=== PATIENT | female | born 1990 | race Caucasian/White ===

== ENCOUNTER 2016-08-09 11:55 | Emergency (ER) | payer MEDICAID ==
[~2016-08-09] VITALS: Ht 160 cm; Wt 62.0 kg
[2016-08-09 11:59] VITALS: BP 96/73
[2016-08-09] MEDS ORDERED: DOCUSATE SODIUM 100MG CAPSULE PO ONE (14:30)
== END 2016-08-09 15:00 | disposition home or self-care (01) ==
LOC: ER 12:56
DX: H66.90 Otitis media, unspecified, unspecified ear (principal); J06.9 Acute upper respiratory infection, unspecified; R09.81 Nasal congestion; H61.23 Impacted cerumen, bilateral
CPT/HCPCS: 87070; 87430; 87804; 99284; X7700

== ENCOUNTER 2017-08-14 16:35 | Emergency (ER) | payer MEDICAID ==
[~2017-08-14] VITALS: Ht 160 cm; Wt 61.0 kg
[2017-08-14] MEDS ORDERED: ACETAMINOPHEN 325MG TABLET PO PRN (17:15)
[2017-08-14] MEDS ORDERED: FAMOTIDINE 20MG TABLET PO ONE (17:15)
[2017-08-14] MEDS ORDERED: ONDANSETRON 4MG ODT PO ONE (17:15)
[2017-08-14 17:43] LABS: CLARITY URINE CLOUDY (CLEAR); COLOR URINE YELLOW (YELLOW); KETONES URINE NEGATIVE (NEGATIVE); LEUKOCYTE ESTERASE URINE NEGATIVE (NEGATIVE); NITRITE URINE NEGATIVE (NEGATIVE); OCCULT BLOOD URINE NEGATIVE (NEGATIVE); PH URINE 6.5 (4.5-8.0); PROTEIN URINE NEGATIVE (NEGATIVE); SPECIFIC GRAVITY URINE 1.018 (1.005-1.030); UROBILINOGEN URINE 0.2 E.U./dL (0.2-1.0)
[2017-08-14 18:14] LABS: BASOPHILS % 0.4 % (0.0-2.0); EOSINOPHILS % 1.9 % (0.0-5.0); HEMATOCRIT. 39.3 % (36.0-48.0); HEMOGLOBIN. 13.1 g/dL (12.0-16.0); LYMPHOCYTES % 26.3 % (20.0-50.0); MEAN CORPUSCULAR HEMOGLOBIN 28.9 pg (28.0-32.0); MEAN CORPUSCULAR VOLUME 86.8 fL (81.0-99.0); MEAN PLATELET VOLUME 9.2 fl (7.4-10.4); NEUTROPHILS % 64.4 % (40.0-76.0); PLATELET 260 x1000/uL (130-400); RED BLOOD CELL COUNT 4.53 mill/uL (4.2-5.4); RED CELL DISTRIBUTION WIDTH 13.3 % (11.6-14.6)
[2017-08-14 18:18] LABS: CHLORIDE 107 mEq/L (98-107)
[2017-08-14 18:43] LABS: B-HCG QUANTITATIVE 124759 mIU/mL (<3)
[2017-08-15 00:35] VITALS: BP 115/69
== END 2017-08-15 00:37 | disposition home or self-care (01) ==
LOC: ER 18:21
DX: O20.0 Threatened abortion (principal); O34.11 Maternal care for benign tumor of corpus uteri, first trimester; Z3A.08 8 weeks gestation of pregnancy
CPT/HCPCS: 36415; 76801; 76817; 76857; 80053; 81003; 83690; 84702; 85025; 86850; 86900; 86901; 99285; Q0162

== ENCOUNTER 2017-10-21 09:17 | Emergency (ER) | payer MEDICAID ==
[~2017-10-21] VITALS: Ht 160 cm; Wt 62.5 kg
[2017-10-21] MEDS ORDERED: PNV1TABL76 PO (09:31)
[2017-10-21] MEDS ORDERED: SODIUM CHLORIDE 0.9% 1,000 ML IV ONE (11:00)
[2017-10-21] MEDS ORDERED: ONDANSETRON HCL 4MG/2ML VIAL IV ONE (11:00)
[2017-10-21 12:10] LABS: BASOPHILS % 0.3 % (0.0-2.0); EOSINOPHILS % 2.7 % (0.0-5.0); HEMATOCRIT. 34.2 % (36.0-48.0); HEMOGLOBIN. 11.7 g/dL (12.0-16.0); LYMPHOCYTES % 21.7 % (20.0-50.0); MEAN CORPUSCULAR HEMOGLOBIN 29.2 pg (28.0-32.0); MEAN CORPUSCULAR VOLUME 85.2 fL (81.0-99.0); MEAN PLATELET VOLUME 9.2 fl (7.4-10.4); MONOCYTES % 6.7 % (2.0-8.0); NEUTROPHILS % 68.6 % (40.0-76.0); PLATELET 243 x1000/uL (130-400); RED BLOOD CELL COUNT 4.01 mill/uL (4.2-5.4); RED CELL DISTRIBUTION WIDTH 13.9 % (11.6-14.6)
[2017-10-21 12:17] LABS: CHLORIDE 107 mEq/L (98-107)
[2017-10-21 12:40] LABS: B-HCG QUANTITATIVE 33482 mIU/mL (<3)
[2017-10-21 16:08] LABS: CLARITY URINE CLEAR (CLEAR); COLOR URINE YELLOW (YELLOW); KETONES URINE NEGATIVE (NEGATIVE); LEUKOCYTE ESTERASE URINE NEGATIVE (NEGATIVE); NITRITE URINE NEGATIVE (NEGATIVE); OCCULT BLOOD URINE NEGATIVE (NEGATIVE); PH URINE 5.5 (4.5-8.0); PROTEIN URINE NEGATIVE (NEGATIVE); UROBILINOGEN URINE 0.2 E.U./dL (0.2-1.0)
[2017-10-21 16:48] VITALS: BP 102/70
== END 2017-10-21 16:51 | disposition home or self-care (01) ==
LOC: ER 09:43
DX: O26.892 Other specified pregnancy related conditions, second trimester (principal); R10.84 Generalized abdominal pain; O21.9 Vomiting of pregnancy, unspecified; R74.0 Nonspecific elevation of levels of transaminase and lactic acid dehydrogenase [LDH]; O99.012 Anemia complicating pregnancy, second trimester; D64.9 Anemia, unspecified; Z3A.18 18 weeks gestation of pregnancy
CPT/HCPCS: 36415; 76805; 80053; 81003; 81025; 84702; 85025; 96361; 96374; 99285; J2405; J7030; J7040; Z7610

== ENCOUNTER 2017-11-24 10:22 | Observation (INO) | payer MEDICAID ==
[~2017-11-24] VITALS: Ht 160 cm; Wt 67.1 kg
[~2017-11-24 10:22] MED LIST: PNV1TABL76 PO
[2017-11-24 11:57] LABS: CLARITY URINE CLEAR (CLEAR); COLOR URINE YELLOW (YELLOW); KETONES URINE NEGATIVE (NEGATIVE); LEUKOCYTE ESTERASE URINE 1+ (NEGATIVE); NITRITE URINE NEGATIVE (NEGATIVE); OCCULT BLOOD URINE NEGATIVE (NEGATIVE); PROTEIN URINE NEGATIVE (NEGATIVE); SPECIFIC GRAVITY URINE 1.018 (1.005-1.030); UROBILINOGEN URINE 0.2 E.U./dL (0.2-1.0)
[2017-11-24] MEDS ORDERED: CEFAZOLIN 2,000 MG in DEXT 5% WATER 100 ML IV SCH (12:45)
[2017-11-24] MEDS ORDERED: LACTATED RINGERS 1,000 ML IV SCH (12:45)
[2017-11-24] MEDS ORDERED: CEFAZOLIN 2000MG PREMIX 50 ML IV SCH (13:00)
== END 2017-11-24 14:05 | disposition home or self-care (01) ==
LOC: L&D 10:22
PROVIDERS: ADMIT Obstetrics & Gynecology; ATTEND Obstetrics & Gynecology
DX: O26.892 Other specified pregnancy related conditions, second trimester (principal); R10.30 Lower abdominal pain, unspecified; Z3A.22 22 weeks gestation of pregnancy
CPT/HCPCS: 81003; 87086; 96365; 99281; G0378; J0690; J7120; J7060

== ENCOUNTER 2018-01-26 12:48 | Observation (INO) | payer OTHER ==
[2018-01-26] MEDS ORDERED: PREN1TAB78 MT (14:10)
[2018-01-26] MEDS ORDERED: FERR325T6 MT (14:10)
[2018-01-26] MEDS ORDERED: CHOL20004 MT (14:10)
[2018-01-26] MEDS ORDERED: FOLI-43 PO (14:10)
[2018-01-26] MEDS ORDERED: CALC-1042 MT (14:10)
== END 2018-01-26 15:50 | disposition home or self-care (01) ==
LOC: L&D 12:48
PROVIDERS: ADMIT Obstetrics & Gynecology; ATTEND Obstetrics & Gynecology
DX: O26.893 Other specified pregnancy related conditions, third trimester (principal); R10.31 Right lower quadrant pain; Z3A.31 31 weeks gestation of pregnancy
CPT/HCPCS: 76805; 99281; G0378

== ENCOUNTER 2018-02-17 10:38 | Observation (INO) | payer OTHER ==
[~2018-02-17] VITALS: Ht 162.6 cm; Wt 73.9 kg
[~2018-02-17 10:38] MED LIST changes: +CALC-1042 MT; +CHOL20004 MT; +FERR325T6 MT; +FOLI-43 PO; -PNV1TABL76 PO; +PREN1TAB78 MT
[2018-02-17 11:30] LABS: CLARITY URINE TURBID (CLEAR); COLOR URINE YELLOW (YELLOW); KETONES URINE NEGATIVE (NEGATIVE); LEUKOCYTE ESTERASE URINE NEGATIVE (NEGATIVE); NITRITE URINE NEGATIVE (NEGATIVE); OCCULT BLOOD URINE NEGATIVE (NEGATIVE); PH URINE 6.5 (4.5-8.0); PROTEIN URINE NEGATIVE (NEGATIVE); SPECIFIC GRAVITY URINE 1.015 (1.005-1.030); UROBILINOGEN URINE 0.2 E.U./dL (0.2-1.0)
== END 2018-02-17 11:40 | disposition home or self-care (01) ==
LOC: L&D 10:38
PROVIDERS: ADMIT Obstetrics & Gynecology; ATTEND Obstetrics & Gynecology
DX: O26.893 Other specified pregnancy related conditions, third trimester (principal); R10.13 Epigastric pain; R10.10 Upper abdominal pain, unspecified; N89.8 Other specified noninflammatory disorders of vagina; Z3A.34 34 weeks gestation of pregnancy
CPT/HCPCS: 81003; 99281; G0378

== ENCOUNTER 2018-02-17 11:50 | Emergency (ER) | payer OTHER ==
[~2018-02-17] VITALS: Ht 162.6 cm; Wt 74.0 kg
[2018-02-17] MEDS: SODIUM CHLORIDE 0.9% 1,000 ML IV ONE (17:12)
[2018-02-17 17:15] LABS: BASOPHILS % 0.4 % (0.0-2.0); EOSINOPHILS % 1.4 % (0.0-5.0); HEMATOCRIT. 41.6 % (36.0-48.0); HEMOGLOBIN. 13.9 g/dL (12.0-16.0); LYMPHOCYTES % 16.6 % (20.0-50.0); MEAN CORPUSCULAR HEMOGLOBIN 29.9 pg (28.0-32.0); MEAN CORPUSCULAR VOLUME 89.4 fL (81.0-99.0); MEAN PLATELET VOLUME 9.8 fl (7.4-10.4); NEUTROPHILS % 73.6 % (40.0-76.0); PLATELET 272 x1000/uL (130-400); RED BLOOD CELL COUNT 4.65 mill/uL (4.2-5.4); RED CELL DISTRIBUTION WIDTH 13.8 % (11.6-14.6)
[2018-02-17 17:20] LABS: PROTHROMBIN TIME 9.6 sec (9.1-11.1)
[2018-02-17 17:21] LABS: CHLORIDE 105 mEq/L (98-107)
[2018-02-17] MEDS: MAGNESIUM/ALUMINUM HYDROXIDE/SIMETHICONE 30ML UDC PO ONE (17:35)
[2018-02-17] MEDS: FAMOTIDINE 20MG/2ML VIAL IV ONE (17:35)
[2018-02-17 17:48] LABS: B-HCG QUANTITATIVE 25224 mIU/mL (<3)
[2018-02-17 19:46] LABS: CLARITY URINE CLOUDY (CLEAR); COLOR URINE YELLOW (YELLOW); KETONES URINE NEGATIVE (NEGATIVE); LEUKOCYTE ESTERASE URINE NEGATIVE (NEGATIVE); NITRITE URINE NEGATIVE (NEGATIVE); OCCULT BLOOD URINE NEGATIVE (NEGATIVE); PROTEIN URINE NEGATIVE (NEGATIVE); SPECIFIC GRAVITY URINE 1.009 (1.005-1.030); UROBILINOGEN URINE 0.2 E.U./dL (0.2-1.0)
[2018-02-17 19:56] VITALS: BP 109/76
== END 2018-02-17 20:20 | disposition home or self-care (01) ==
LOC: ER 11:50
DX: O23.33 Infections of other parts of urinary tract in pregnancy, third trimester (principal); O21.8 Other vomiting complicating pregnancy; N28.89 Other specified disorders of kidney and ureter; Z3A.30 30 weeks gestation of pregnancy; Z79.899 Other long term (current) drug therapy
CPT/HCPCS: 36415; 76705; 76805; 80053; 81003; 83690; 84702; 85025; 85610; 96361; 96374; 99285; J3490; J7030

== ENCOUNTER 2018-07-28 06:20 | Emergency (ER) | payer OTHER, MEDICAID ==
[~2018-07-28] VITALS: Ht 157.5 cm; Wt 68.0 kg
[2018-07-28 06:51] VITALS: BP 109/71
[2018-07-28] MEDS ORDERED: ACETAMINOPHEN 500MG TABLET PO ONE (10:15)
== END 2018-07-28 11:16 | disposition home or self-care (01) ==
LOC: ER 06:20
DX: J06.9 Acute upper respiratory infection, unspecified (principal); Z98.890 Other specified postprocedural states; Z79.899 Other long term (current) drug therapy
CPT/HCPCS: 87070; 87430; 99283

== ENCOUNTER 2018-12-29 17:58 | Emergency (ER) | payer MEDICAID, OTHER ==
[~2018-12-29] VITALS: Ht 160 cm; Wt 77.0 kg
[2018-12-29] MEDS ORDERED: IBUPROFEN 800MG TABLET PO ONE (21:30)
[2018-12-29 22:00] VITALS: BP 110/70
== END 2018-12-29 22:07 | disposition home or self-care (01) ==
LOC: ER 17:58
DX: J06.9 Acute upper respiratory infection, unspecified (principal); J02.9 Acute pharyngitis, unspecified; R19.7 Diarrhea, unspecified; Z79.899 Other long term (current) drug therapy; Z98.890 Other specified postprocedural states
CPT/HCPCS: 71045; 81025; 87070; 87430; 87804; 99284

== ENCOUNTER 2020-05-28 07:15 | Emergency (ER) | payer MEDICAID, OTHER ==
[~2020-05-28] VITALS: Ht 157.5 cm; Wt 80.0 kg
[2020-05-28 07:34] VITALS: BP 116/79
[2020-05-28 09:18] LABS: CLARITY URINE CLOUDY (CLEAR); COLOR URINE YELLOW (YELLOW); KETONES URINE NEGATIVE (NEGATIVE); LEUKOCYTE ESTERASE URINE 3+ (NEGATIVE); NITRITE URINE NEGATIVE (NEGATIVE); OCCULT BLOOD URINE 2+ (NEGATIVE); PH URINE 5.5 (4.5-8.0); PROTEIN URINE TRACE (NEGATIVE); SPECIFIC GRAVITY URINE 1.028 (1.005-1.030); UROBILINOGEN URINE 0.2 E.U./dL (0.2-1.0)
[2020-05-28] MEDS ORDERED: LIDOCAINE HCL 1% 20ML VIAL (Pyxis) INJ INFIL ONE (09:30)
[2020-05-28] MEDS ORDERED: AZITHROMYCIN 500 MG TABLET PO ONE (09:30)
[2020-05-28] MEDS ORDERED: CEFTRIAXONE SODIUM 250 MG/VIAL IM ONE (09:30)
[2020-05-30 04:07] LABS: NEISSERIA GONORRHOEAE NAA Negative (Negative)
== END 2020-05-28 11:29 | disposition home or self-care (01) ==
LOC: ER 07:15
DX: N39.0 Urinary tract infection, site not specified (principal); Z20.2 Contact with and (suspected) exposure to infections with a predominantly sexual mode of transmission; Z98.890 Other specified postprocedural states; Z79.899 Other long term (current) drug therapy
CPT/HCPCS: 81003; 81025; 87086; 87491; 87591; 96372; 99283; J0696; J3490

== ENCOUNTER 2021-06-10 08:29 | Emergency (ER) | payer MEDICAID, OTHER ==
[~2021-06-10] VITALS: Ht 160 cm; Wt 73.0 kg
[2021-06-10 08:35] VITALS: BP 131/81
[2021-06-10] MEDS ORDERED: IPRATROPIUM BROMIDE (0.02%) 0.5MG/2.5ML NEB HHN STA (08:51)
[2021-06-10] MEDS ORDERED: PREDNISONE 20MG TABLET PO STA (08:51)
[2021-06-10] MEDS ORDERED: ALBUTEROL (0.083%) 2.5MG/3ML NEB HHN STA (08:51)
[2021-06-10] MEDS ORDERED: P20 MT (09:58)
[2021-06-10] MEDS ORDERED: ALBU6.7H9 INH (09:58)
== END 2021-06-10 10:28 | disposition home or self-care (01) ==
LOC: ER 08:41
DX: J04.0 Acute laryngitis (principal); Z20.822 Contact with and (suspected) exposure to COVID-19; R07.89 Other chest pain; J02.9 Acute pharyngitis, unspecified; Z98.890 Other specified postprocedural states; Z79.899 Other long term (current) drug therapy
CPT/HCPCS: 71045; 94640; 99284; C9803; J7512; U0003; U0005; Z7610

== ENCOUNTER 2021-08-17 06:48 | Emergency (ER) | payer MEDICAID ==
[~2021-08-17] VITALS: Ht 167.6 cm; Wt 60.0 kg
[~2021-08-17 06:48] MED LIST changes: +ALBU6.7H9 INH; +P20 MT
[2021-08-17] MEDS ORDERED: LORAZEPAM 0.5MG TABLET PO ONE (07:45)
[2021-08-17 08:46] LABS: CLARITY URINE CLEAR (CLEAR); COLOR URINE YELLOW (YELLOW); KETONES URINE 1+ (NEGATIVE); LEUKOCYTE ESTERASE URINE 1+ (NEGATIVE); NITRITE URINE NEGATIVE (NEGATIVE); OCCULT BLOOD URINE NEGATIVE (NEGATIVE); PH URINE 5.5 (4.5-8.0); PROTEIN URINE TRACE (NEGATIVE); SPECIFIC GRAVITY URINE 1.027 (1.005-1.030); UROBILINOGEN URINE 0.2 E.U./dL (0.2-1.0)
[2021-08-17] MEDS ORDERED: VIST25 MT (08:52)
[2021-08-17] MEDS ORDERED: LORAZEPAM 2MG/ML CPJ IM ONE (09:00)
[2021-08-17] MEDS ORDERED: ONDANSETRON 4MG ODT PO STA (09:00)
[2021-08-17] MEDS ORDERED: HYDROXYZINE 25MG TABLET PO PRN (09:45)
[2021-08-17 11:47] LABS: HEMATOCRIT. 44.7 % (36.0-48.0); HEMOGLOBIN. 15.2 g/dL (12.0-16.0); MEAN CORPUSCULAR HEMOGLOBIN 28.3 pg (28.0-32.0); MEAN CORPUSCULAR VOLUME 83.4 fL (81.0-99.0); MEAN PLATELET VOLUME 8.9 fl (7.4-10.4); PLATELET 284 x1000/uL (130-400); RED BLOOD CELL COUNT 5.37 mill/uL (4.2-5.4); RED CELL DISTRIBUTION WIDTH 13.6 % (11.6-14.6)
[2021-08-17 11:48] LABS: CHLORIDE 109 mEq/L (98-107)
[2021-08-17 12:04] LABS: PLATELET ESTIMATE NORMAL
[2021-08-17 12:16] VITALS: BP 138/74
== END 2021-08-17 12:24 | disposition home or self-care (01) ==
LOC: ER 06:48
DX: F41.9 Anxiety disorder, unspecified (principal); R10.9 Unspecified abdominal pain; Z98.890 Other specified postprocedural states
CPT/HCPCS: 36415; 80053; 81003; 81025; 83690; 84484; 85025; 93005; 96372; 99284; J2060; Q0162

== ENCOUNTER 2022-10-11 17:51 | Emergency (ER) | payer MEDICAID, OTHER ==
[~2022-10-11] VITALS: Ht 160 cm; Wt 74.0 kg
[~2022-10-11 17:51] MED LIST changes: +ALBU6.7H3 INH; -ALBU6.7H9 INH; +VIST25 MT
[2022-10-11] MEDS ORDERED: ACETAMINOPHEN 325MG TABLET PO ONE (18:30)
[2022-10-11] MEDS ORDERED: LIDOCAINE HCL/PF 1% 10 MG/ML 5ML VIAL INFIL NR (19:30)
[2022-10-11 21:32] VITALS: BP 149/93
== END 2022-10-11 21:34 | disposition home or self-care (01) ==
LOC: ER 17:51
DX: M79.674 Pain in right toe(s) (principal); F41.9 Anxiety disorder, unspecified; Z98.890 Other specified postprocedural states
CPT/HCPCS: 73630; 99283; J3490; Z7610

== ENCOUNTER 2023-01-13 12:59 | Emergency (ER) | payer MEDICAID ==
[~2023-01-13] VITALS: Ht 160 cm; Wt 75.5 kg
[2023-01-13 13:29] VITALS: O2SAT 100
[2023-01-13 15:02] LABS: BASOPHILS % 0.3 % (0.0-2.0); EOSINOPHILS % 1.9 % (0.0-5.0); HEMATOCRIT. 40.7 % (36.0-48.0); HEMOGLOBIN. 13.1 g/dL (12.0-16.0); LYMPHOCYTES % 19.9 % (20.0-50.0); MEAN CORPUSCULAR HEMOGLOBIN 28.6 pg (28.0-32.0); MEAN CORPUSCULAR HGB CONC 32.2 g/dL (31.0-37.0); MEAN CORPUSCULAR VOLUME 88.8 fL (81.0-99.0); MEAN PLATELET VOLUME 9.1 fl (7.4-10.4); MONOCYTES % 6.5 % (2.0-8.0); NEUTROPHILS % 71.4 % (40.0-76.0); PLATELET 299 x1000/uL (130-400); RED BLOOD CELL COUNT 4.58 mill/uL (4.2-5.4)
[2023-01-13 15:15] LABS: CHLORIDE 109 mEq/L (98-107); INDEX HEMOLYSI 1 (1-3); INDEX ICTERIC 1 (1-4); INDEX LIPEMIC 1 (1-3); POTASSIUM 3.5 mEq/L (3.5-5.1); SODIUM 135 mEq/L (136-145)
[2023-01-13 15:36] LABS: ALANINE AMINOTRANSFERASE 33 IU/L (13-61); ALBUMIN 3.4 g/dL (3.4-5.0); ASPARTATE AMINOTRANSFERASE 15 IU/L (15-37); B-HCG QUANTITATIVE 104135 mIU/mL (<3); BILIRUBIN TOTAL 0.4 mg/dL (0.1-1.0); CARBON DIOXIDE 24 mEq/L (21-32); CREATININE 0.5 mg/dL (0.6-1.3); GLUCOSE 83 mg/dL (70-105); PROTEIN TOTAL 7.5 g/dL (6.0-8.3); UREA NITROGEN BLOOD 8 mg/dL (7-21)
[2023-01-13 16:28] LABS: CLARITY URINE TURBID (CLEAR); COLOR URINE YELLOW (YELLOW); GLUCOSE URINE NEGATIVE (NEGATIVE); KETONES URINE NEGATIVE (NEGATIVE); LEUKOCYTE ESTERASE URINE 3+ (NEGATIVE); NITRITE URINE NEGATIVE (NEGATIVE); OCCULT BLOOD URINE TRACE (NEGATIVE); PROTEIN URINE TRACE (NEGATIVE); UROBILINOGEN URINE 0.2 E.U./dL (0.2-1.0)
[2023-01-13 16:46] LABS: BACTERIA URINE 4+; RBC URINE 0-2 /hpf (0-2); SQUAMOUS EPITHELIAL CELL URINE 2+ /lpf (RARE/1+); WBC URINE TNTC /hpf (0-2)
[2023-01-13] MEDS ORDERED: CEPH500T MT (18:51)
[2023-01-13 20:58] VITALS: BP 134/81; PULSE 73; RESP 18; TEMP 98.4
== END 2023-01-13 20:59 | disposition home or self-care (01) ==
LOC: ER 12:59
DX: O23.11 Infections of bladder in pregnancy, first trimester (principal); Z3A.09 9 weeks gestation of pregnancy
CPT/HCPCS: 36415; 76801; 80053; 81003; 81025; 84702; 85025; 86850; 86900; 87077; 87186; 99284

== ENCOUNTER → 2023-04-22 | Emergency (ER) | payer MEDICAID ==
[~2023-04-22] MED LIST changes: +CEPH500T MT
[2023-04-22 10:37] VITALS: PULSE 108
== END ==
LOC: ER 10:34
DX: Z53.21 Procedure and treatment not carried out due to patient leaving prior to being seen by health care provider (principal)

== ENCOUNTER 2024-03-23 06:16 | Emergency (ER) | payer MEDICAID ==
[~2024-03-23] VITALS: Ht 160 cm; Wt 83.0 kg
[~2024-03-23 06:16] MED LIST changes: +ATROV3 BOTHNSTRLS
[2024-03-23 06:26] VITALS: O2SAT 96
[2024-03-23 07:14] LABS: CLARITY URINE CLOUDY (CLEAR); COLOR URINE YELLOW (YELLOW); GLUCOSE URINE NEGATIVE (NEGATIVE); KETONES URINE NEGATIVE (NEGATIVE); LEUKOCYTE ESTERASE URINE 3+ (NEGATIVE); NITRITE URINE NEGATIVE (NEGATIVE); OCCULT BLOOD URINE 1+ (NEGATIVE); PROTEIN URINE 2+ (NEGATIVE); SPECIFIC GRAVITY URINE 1.021 (1.005-1.030); UROBILINOGEN URINE 0.2 E.U./dL (0.2-1.0)
[2024-03-23 07:23] LABS: WBC URINE TNTC /hpf (0-2)
[2024-03-23 07:24] LABS: BACTERIA URINE 1+; SQUAMOUS EPITHELIAL CELL URINE 2+ /lpf (RARE/1+); YEAST URINE NONE SEEN
[2024-03-23 07:32] LABS: BASOPHILS % 0.6 % (0.0-2.0); EOSINOPHILS % 6.7 % (0.0-5.0); HEMATOCRIT. 42.5 % (36.0-48.0); MEAN CORPUSCULAR HEMOGLOBIN 27.5 pg (28.0-32.0); MEAN CORPUSCULAR HGB CONC 32.9 g/dL (31.0-37.0); MEAN CORPUSCULAR VOLUME 83.4 fL (81.0-99.0); MEAN PLATELET VOLUME 8.9 fl (7.4-10.4); MONOCYTES % 7.3 % (2.0-8.0); NEUTROPHILS % 58.4 % (40.0-76.0); PLATELET 308 x1000/uL (130-400); RED BLOOD CELL COUNT 5.09 mill/uL (4.2-5.4); RED CELL DISTRIBUTION WIDTH 15.2 % (11.6-14.6)
[2024-03-23 07:36] LABS: CHLORIDE 109 mEq/L (98-107); SODIUM 141 mEq/L (136-145)
[2024-03-23 07:37] LABS: CALCIUM 9.3 mg/dL (8.7-10.4); CARBON DIOXIDE 25 mEq/L (21-32)
[2024-03-23 07:42] LABS: CREATININE 0.7 mg/dL (0.6-1.0); GLUCOSE 123 mg/dL (70-105); UREA NITROGEN BLOOD 8 mg/dL (9-23)
[2024-03-23 08:30] LABS: ALANINE AMINOTRANSFERASE 22 IU/L (10-49); ALBUMIN 4.3 g/dL (3.2-4.8); ASPARTATE AMINOTRANSFERASE 17 IU/L (<34); BILIRUBIN TOTAL 0.3 mg/dL (0.1-1.0); PROTEIN TOTAL 7.5 g/dL (6.0-8.3)
[2024-03-23] MEDS: FAMOTIDINE 20MG TABLET PO ONE (08:42)
[2024-03-23] MEDS: MAGNESIUM/ALUMINUM HYDROXIDE/SIMETHICONE 30ML UDC PO STA (08:42)
[2024-03-23] MEDS: ONDANSETRON 4MG ODT PO STA (08:42)
[2024-03-23 08:43] LABS: BILIRUBIN DIRECT < 0.1 mg/dL (<=3.0)
[2024-03-23] MEDS ORDERED: CEFP200T13 MT (11:12)
[2024-03-23 11:20] VITALS: BP 128/77; PULSE 54; RESP 12; TEMP 36.78072; O2SAT 100
== END 2024-03-23 11:20 | disposition home or self-care (01) ==
LOC: ER 06:25
DX: N39.0 Urinary tract infection, site not specified (principal); F41.9 Anxiety disorder, unspecified; Z79.899 Other long term (current) drug therapy; Z98.890 Other specified postprocedural states
CPT/HCPCS: 99284; 74176; 80076; 80048; 81003; 81025; 83690; 85025; 87086; 36415; Q0162